=== PATIENT | male | born 1940 | race African-American/Black ===

== ENCOUNTER 2017-03-24 14:57 | Emergency (ER) | payer MEDICARE, MEDICAID ==
[~2017-03-24] VITALS: Ht 175.3 cm; Wt 74.8 kg
[2017-03-24 17:24] LABS: Urine Bilirubin Negative (Negative); Urine Blood Negative /uL (Negative); Urine Color Yellow (Yellow); Urine Glucose Normal (Normal); Urine Ketone Negative (Negative); Urine Nitrite Negative (Negative); Urine RBC <1 /hpf (0 - 3); Urine Urobilinogen Normal (Negative)
[2017-03-24 17:24] LABS: Basophils # (auto) 0 uL; Basophils % (auto) 0.9 % (0.0-2.0); CONDITION Y; Eosinophils # (auto) 0.1 uL; Eosinophils % (auto) 2.8 % (0.0-7.0); Hemoglobin 13.5 g/dL (13.5-17.5); Lymphocytes # (auto) 0.7 uL; Lymphocytes % (auto) 14.5 % (10.0-50.0); Mean Corpuscular Hemoglobin 29.5 pg (28.0-32.0); Mean Corpuscular Hgb Conc. 32.8 g/dL (32.0-36.0); Mean Corpuscular Volume 89.9 fL (80.0-100.0); Mean Platelet Volume 7.9 fL (7.4-10.4); Monocytes # (auto) 0.4 uL; Monocytes % (auto) 8.9 % (0.0-12.0); Neutrophils # (auto) 3.4 uL; Neutrophils % (auto) 72.9 % (37.0-80.0); Platelet Count (auto) 267 10^3/uL (140-450); White Blood Cell 4.6 10^3/uL (4.4-10.8)
[2017-03-24 17:43] LABS: Albumin 3.6 g/dL (3.4-5.0); BUN/Creatinine Ratio 9.3; Calcium 8.5 mg/dL (8.5-10.1); Potassium 3.7 mmol/L (3.5-5.1)
[2017-03-24 17:46] LABS: Bilirubin, Total 0.8 mg/dL (0.2-1.0); Total Protein 7.8 g/dL (6.4-8.2)
[2017-03-24 19:04] VITALS: BP 156/90
== END 2017-03-24 18:13 | disposition home or self-care (01) ==
LOC: EDBD 14:57 → ER 15:08
DX: R51 Headache (principal); J44.9 Chronic obstructive pulmonary disease, unspecified; I10 Essential (primary) hypertension; Z87.891 Personal history of nicotine dependence; Z88.8 Allergy status to other drugs, medicaments and biological substances; W01.0XXA Fall on same level from slipping, tripping and stumbling without subsequent striking against object, initial encounter; Y99.8 Other external cause status; Y93.89 Activity, other specified; Y92.89 Other specified places as the place of occurrence of the external cause
CPT/HCPCS: 36415; 70450; 80053; 81001; 85025; 93005; 94761